=== PATIENT | male | born 1960 | race Caucasian/White ===

== ENCOUNTER 2021-05-20 06:39 | Day surgery (SDC) | payer OTHER ==
[2021-05-20] MEDS ORDERED: Xylocaine 1% Vial 30 ML PF IJ ONE (06:40)
[2021-05-20] MEDS ORDERED: BUPIVACAINE 0.5% VIAL IJ ONE (06:40)
[2021-05-20] MEDS ORDERED: Depo-Medrol 40 MG/ML IM ONE (06:40)
--- NOTE | 2021-05-20 09:40 | XRAY ---
Indication: Bilateral SI joint injection. Intraoperative fluoroscopy provided for 24 seconds. 4 digital spot images submitted for interpretation demonstrates posterior needle tip projecting over the inferior left and right SI joints. Correlate with intraoperative findings/report.
--- NOTE | 2021-05-20 13:07 | XRAY ---
24 seconds fluoroscopy time in surgery for injections of both SI joints.
== END 2021-05-20 09:03 | disposition home or self-care (01) ==
LOC: SDC-PAIN 06:39
PROVIDERS: ATTEND Psychiatry & Neurology Pain Medicine
DX: M46.1 Sacroiliitis, not elsewhere classified (principal)
CPT/HCPCS: 27096; 72202; 77002; G0260; J1030; J2001

== ENCOUNTER 2021-06-17 08:22 | Day surgery (SDC) | payer OTHER ==
[2021-06-17] MEDS ORDERED: Depo-Medrol 40 MG/ML IM ONE (08:23)
[2021-06-17] MEDS ORDERED: LIDOCAINE HCL 2% 100 MG/5 ML IJ ONE (08:23)
[2021-06-17] MEDS ORDERED: Versed 2 MG/2 ML Injection ONE (09:46)
[2021-06-17] MEDS ORDERED: Lactated Ringers 1,000 ML IV ONE (10:11)
--- NOTE | 2021-06-17 12:18 | XRAY ---
Indication: Bilateral L4-S1 MBB. Intraoperative fluoroscopy provided for 18 seconds. Single digital spot image submitted for interpretation demonstrates posterior needle tips projecting over the expected left and right L4-S1 nerve roots. Correlate with intraoperative findings/report.
--- NOTE | 2021-06-17 12:20 | XRAY ---
18 seconds fluoroscopy time in surgery for bilateral L4-S1 MBB.
== END 2021-06-17 10:11 | disposition home or self-care (01) ==
LOC: SDC-PAIN 08:22
PROVIDERS: ATTEND Psychiatry & Neurology Pain Medicine
DX: M47.816 Spondylosis without myelopathy or radiculopathy, lumbar region (principal); Z79.899 Other long term (current) drug therapy
CPT/HCPCS: 64493; 64494; 72020; 77002; J1030; J2250

== ENCOUNTER 2021-07-15 10:55 | Day surgery (SDC) | payer OTHER ==
[2021-07-15] MEDS ORDERED: BUPIVACAINE 0.5% VIAL IJ ONE (10:56)
[2021-07-15] MEDS ORDERED: Depo-Medrol 40 MG/ML IM ONE (10:56)
[2021-07-15] MEDS ORDERED: Lactated Ringers 1,000 ML IV ONE (13:38)
[2021-07-15] MEDS ORDERED: DIPRIVAN 200 MG/20 ML IV ONE (13:45)
--- NOTE | 2021-07-15 16:15 | XRAY ---
Indication: Bilateral L4-S1 MBB. Intraoperative fluoroscopy provided for 13 seconds. Single digital spot image submitted for interpretation demonstrates posterior needle tips projecting over the expected left and right L4-S1 nerve roots. Correlate with intraoperative findings/report.
--- NOTE | 2021-07-15 16:28 | XRAY ---
13 seconds of fluoroscopy was used in surgery for a bilateral L4-S1 MBB.
== END 2021-07-15 14:10 | disposition home or self-care (01) ==
LOC: SDC-PAIN 10:55
PROVIDERS: ATTEND Psychiatry & Neurology Pain Medicine
DX: M47.816 Spondylosis without myelopathy or radiculopathy, lumbar region (principal); Z79.899 Other long term (current) drug therapy
CPT/HCPCS: 64493; 64494; 72020; 77002; J1030; J2704

== ENCOUNTER 2021-08-05 08:27 | Day surgery (SDC) | payer OTHER ==
[2021-08-05] MEDS ORDERED: Xylocaine 1% Vial 30 ML PF IJ ONE (08:28)
[2021-08-05] MEDS ORDERED: Depo-Medrol 40 MG/ML IJ ONE (08:28)
[2021-08-05] MEDS ORDERED: BUPIVACAINE 0.5% VIAL IJ ONE (08:28)
[2021-08-05] MEDS ORDERED: DIPRIVAN 200 MG/20 ML IV ONE (09:07)
--- NOTE | 2021-08-05 10:23 | XRAY ---
Indication: Right L4-S1 RFA. Intraoperative fluoroscopy provided for 25 seconds. 3 digital spot image submitted for interpretation demonstrates posterior needle tips projecting over the expected right L4-S1 nerve roots. Correlate with intraoperative findings/report.
--- NOTE | 2021-08-05 10:55 | XRAY ---
25 seconds fluoroscopy time in surgery for right L4-S1 RFA.
[2021-08-05] MEDS ORDERED: Lactated Ringers 1,000 ML IV ONE (11:20)
== END 2021-08-05 09:42 | disposition home or self-care (01) ==
LOC: SDC-PAIN 08:27
PROVIDERS: ATTEND Psychiatry & Neurology Pain Medicine
DX: M47.816 Spondylosis without myelopathy or radiculopathy, lumbar region (principal); Z79.899 Other long term (current) drug therapy
CPT/HCPCS: 64635; 64636; 72100; 77003; J1030; J2001; J2704

== ENCOUNTER 2021-08-12 11:30 | Day surgery (SDC) | payer OTHER ==
[2021-08-12] MEDS ORDERED: Depo-Medrol 40 MG/ML IM ONE (11:31)
[2021-08-12] MEDS ORDERED: BUPIVACAINE 0.5% VIAL IJ ONE (11:31)
[2021-08-12] MEDS ORDERED: Xylocaine 1% Vial 30 ML PF IJ ONE (11:31)
[2021-08-12] MEDS ORDERED: Lactated Ringers 1,000 ML IV ONE (14:30)
[2021-08-12] MEDS ORDERED: DIPRIVAN 200 MG/20 ML IV ONE (14:37)
--- NOTE | 2021-08-12 15:14 | XRAY ---
Indication: Left L4-S1 RFA. Intraoperative fluoroscopy provided for 11 seconds. 3 digital spot image submitted for interpretation demonstrates posterior needle tips projecting over the expected left L4-S1 nerve roots. Correlate with intraoperative findings/report.
--- NOTE | 2021-08-12 15:18 | XRAY ---
11 seconds fluoroscopy time in surgery for left L4-S1 RFA.
== END 2021-08-12 15:07 | disposition home or self-care (01) ==
LOC: SDC-PAIN 11:30
PROVIDERS: ATTEND Psychiatry & Neurology Pain Medicine
DX: M47.816 Spondylosis without myelopathy or radiculopathy, lumbar region (principal)
CPT/HCPCS: 64635; 64636; 72100; 77002; J1030; J2001; J2704

== ENCOUNTER 2021-11-11 09:54 | Day surgery (SDC) | payer OTHER ==
[2021-11-11] MEDS ORDERED: Depo-Medrol 40 MG/ML IM ONE (09:55)
[2021-11-11] MEDS ORDERED: Sodium Chloride 0.9(Preservative Free) 10 ML IJ ONE (09:55)
[2021-11-11] MEDS ORDERED: Lactated Ringers 1,000 ML IV ONE (12:33)
[2021-11-11] MEDS ORDERED: DIPRIVAN 200 MG/20 ML IV ONE (12:51)
--- NOTE | 2021-11-11 13:49 | XRAY ---
Indication: Left L4-S1 transforaminal JONATHAN. Intraoperative fluoroscopy provided for 24 seconds. 3 digital spot image submitted for interpretation demonstrates posterior needle tips projecting over the expected left L4 and L5 nerve roots. Small amount of contrast injected for needle tip placement. Correlate with intraoperative findings/report.
--- NOTE | 2021-11-11 14:24 | XRAY ---
24 seconds of fluoroscopy was used in surgery for a left L4-S1 transforaminal JONATHAN.
== END 2021-11-11 13:08 | disposition home or self-care (01) ==
LOC: SDC-PAIN 09:54
PROVIDERS: ATTEND Psychiatry & Neurology Pain Medicine
DX: M54.16 Radiculopathy, lumbar region (principal); Z79.899 Other long term (current) drug therapy
CPT/HCPCS: 64483; 64484; 72100; 77003; J1030; J2704; Q9966

== ENCOUNTER 2022-08-04 12:35 | Day surgery (SDC) | payer OTHER ==
[2022-08-04] MEDS ORDERED: Depo-Medrol 40 MG/ML IM ONE (12:36)
[2022-08-04] MEDS ORDERED: LIDOCAINE HCL 1% 50 MG/5 ML VL PF IJ ONE (12:36)
[2022-08-04] MEDS ORDERED: Sodium Chloride 0.9(Preservative Free) 10 ML IJ ONE (12:36)
[2022-08-04] MEDS ORDERED: DIPRIVAN 200 MG/20 ML IV ONE ×2 (14:30→14:39)
--- NOTE | 2022-08-04 14:57 | XRAY ---
Indication: Lumbar JONATHAN. Intraoperative fluoroscopy provided for 17 seconds. 2 digital spot image submitted for interpretation demonstrates posterior needle tip projecting just posterior to lumbosacral interspace. Small amount of contrast injected for needle tip placement. Correlate with intraoperative findings/report.
--- NOTE | 2022-08-04 16:42 | XRAY ---
17 seconds of fluoroscopy was used in surgery for a lumbar JONATHAN.
[2022-08-04] MEDS ORDERED: Lactated Ringers 1,000 ML IV ONE (16:48)
== END 2022-08-04 15:05 | disposition home or self-care (01) ==
LOC: SDC-PAIN 12:35
PROVIDERS: ATTEND Psychiatry & Neurology Pain Medicine
DX: M54.16 Radiculopathy, lumbar region (principal); Z79.899 Other long term (current) drug therapy
CPT/HCPCS: 62323; 72100; 77003; J1030; J2001; J2704; Q9966

== ENCOUNTER 2022-09-29 06:47 | Day surgery (SDC) | payer OTHER ==
[2022-09-29] MEDS ORDERED: Depo-Medrol 40 MG/ML IM ONE (06:48)
[2022-09-29] MEDS ORDERED: Sodium Chloride 0.9(Preservative Free) 10 ML IJ ONE (06:48)
[2022-09-29] MEDS ORDERED: DIPRIVAN 200 MG/20 ML IV ONE (08:41)
--- NOTE | 2022-09-29 10:20 | XRAY ---
Indication: Right L4-S1 transforaminal JONATHAN. Intraoperative fluoroscopy provided for 21 seconds. 4 digital spot image submitted for interpretation demonstrates posterior needle tips projecting over the expected right L4 and L5 nerve roots. Small amount of contrast injected for needle tip placement. Correlate with intraoperative findings/report.
--- NOTE | 2022-09-29 12:44 | XRAY ---
21 seconds of fluoroscopy was used in surgery for a right L4-S1 transforaminal JONATHAN.
[2022-09-29] MEDS ORDERED: Lactated Ringers 1,000 ML IV ONE (13:12)
== END 2022-09-29 09:17 | disposition home or self-care (01) ==
LOC: SDC-PAIN 06:47
PROVIDERS: ATTEND Psychiatry & Neurology Pain Medicine
DX: M54.16 Radiculopathy, lumbar region (principal); Z79.899 Other long term (current) drug therapy
CPT/HCPCS: 64483; 64484; 72100; 77003; J1030; J2704; Q9966